=== PATIENT | female | born 1985 | race Caucasian/White ===

== ENCOUNTER → 2022-04-25 15:45 | Outpatient (CLI) | payer BC, SELFPAY ==
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
== END ==
PROVIDERS: PCP Internal Medicine; Visit Provider Clinical Nurse Specialist
DX: M50.30 Other cervical disc degeneration, unspecified cervical region (principal)
CPT/HCPCS: 72141

== ENCOUNTER 2022-08-09 09:23 | Outpatient (CLI) | payer BC, SELFPAY ==
[2022-08-09 11:30] LABS: Kit Draw Collected
== END 2022-08-09 09:24 | disposition home or self-care (01) ==
LOC: ANHGOSHLAB 09:26
PROVIDERS: PCP Internal Medicine; Visit Provider Clinical Nurse Specialist
DX: E55.9 Vitamin D deficiency, unspecified (principal); R51.9 Headache, unspecified; Z13.220 Encounter for screening for lipoid disorders; Z13.29 Encounter for screening for other suspected endocrine disorder; Z53.8 Procedure and treatment not carried out for other reasons
CPT/HCPCS: 99199; 36415

== ENCOUNTER → 2022-08-28 14:44 | Outpatient (CLI) | payer BC, SELFPAY ==
--- NOTE | ~2022-08-28 | MR_ITS ---
EXAMINATION: MR brain/brain stem wo/w con DATE: 08/28/2022 17:31 [employer] INDICATION: Headache. TECHNIQUE: Magnetic resonance imaging (MRI) of the brain and brainstem was performed without and with administration of 20 cc MultiHance intravenous contrast. Sequences included sagittal and axial T1-we ighted SE, axial diffusion-weighted FS SE, axial T2*-weighted GRE, axial T2-weighted FLAIR Propeller, and axial T2-weighted Propeller. Apparent diffusion coefficient (ADC) maps were created. COMPARISON: CT brain dated 09/17/2027 FINDINGS: The brain volume and ventricular system are within normal limits. The brain parenchymal si gnal intensity pattern and dean/white matter is normal and there is no evidence of hemorrhage, space occupying masses or infarctions. The flow signal voids of the major arterial structures about the [place] and within the иван r dural venous sinuses appear grossly unremarkable and patent. The seventh and eighth cranial nerve complexes are normal. The mid sagittal image demonstrates a normal craniovertebral junction and faith us callosum. The paranasal sinuses are grossly unremarkable. No abnormal contrast enhancement was appreciated. IMPRESSION: 1: Unremarkable MRI of the brain. Reviewed, dictated and finalized at location A. [employer]
== END ==
PROVIDERS: PCP Internal Medicine; Visit Provider Clinical Nurse Specialist
DX: R51.9 Headache, unspecified (principal)
CPT/HCPCS: 70553; A9577

== ENCOUNTER → 2023-06-05 14:10 | Outpatient (CLI) | payer BC, SELFPAY ==
--- NOTE | ~2023-06-05 | XR_ITS ---
EXAMINATION: XR forearm LT 2V INDICATION: Left forearm pain TECHNIQUE: Two views of the left forearm are obtained. COMPARISON: None available FINDINGS: No fracture, dislocation, or subluxation. The bones, soft tissues, and joint spaces are nor mal. IMPRESSION: 1. No acute osseous abnormality. Reviewed, dictated and finalized at location B.
== END ==
PROVIDERS: PCP Clinical Nurse Specialist; Visit Provider Clinical Nurse Specialist
DX: M79.602 Pain in left arm (principal)
CPT/HCPCS: 73090

== ENCOUNTER 2024-01-23 09:22 | Emergency (ER) | payer BC, SELFPAY ==
[2024-01-23 09:24] VITALS: BP 125/84; PULSE 110; RESP 16; TEMP 37; O2SAT 98
--- NOTE | 2024-01-23 12:45 | PC.NURSE ---
pt left d/t wait time
== END 2024-01-23 12:51 | disposition left against medical advice (07) ==
LOC: ANHED 12:50
PROVIDERS: PCP Clinical Nurse Specialist
DX: R11.2 Nausea with vomiting, unspecified (principal)
CPT/HCPCS: 99199